=== PATIENT | male | born 1965 | race Caucasian/White ===

== ENCOUNTER 2022-01-26 17:48 | Emergency (ER) | payer BC ==
[2022-01-26] MEDS ORDERED: Bacitracin Oint 1 GM U/D Packet TOP ONE (18:23)
[2022-01-26] MEDS ORDERED: HYDROmorphone 1 MG/ML Syringe IM ONE (20:00)
== END 2022-01-26 21:20 | disposition home or self-care (01) ==
LOC: JP.ED 17:48
DX: S92.012A Displaced fracture of body of left calcaneus, initial encounter for closed fracture (principal); Z79.82 Long term (current) use of aspirin; Z79.899 Other long term (current) drug therapy; X50.1XXA Overexertion from prolonged static or awkward postures, initial encounter
CPT/HCPCS: 73610-LT; 73630-LT; 96372; 99281; 99283-25; J1170